=== PATIENT | male | born 1955 | race Caucasian/White ===

== ENCOUNTER 2016-03-01 19:28 | Inpatient (IN) | payer MEDICARE, MEDICAID ==
[~2016-03-01] VITALS: Ht 162.6 cm; Wt 79.0 kg
[2016-03-01] MEDS ORDERED: HALOPERIDOL 5 MG TABLET PO PRN (23:30)
[2016-03-01] MEDS ORDERED: INFLUENZA VIRUS VACCINE QVS 2016-17 (3YR+)/PF 60 MCG/0.5 ML SYRINGE IM ONE (23:45)
[2016-03-02] MEDS ORDERED: PNEUMOCOCCAL VACCINE POLYVALENT 0.5 ML VIAL [PPSV23] IM ONE (05:15)
[2016-03-02 06:19] VITALS: BP 125/92
[2016-03-02 08:10] LABS: BASOPHILS % (AUTO) 0.6 % (0.0-2.0); EOSINOPHILS % (AUTO) 2.1 % (1.0-6.0); HEMATOCRIT 41.1 % (41-53); HEMOGLOBIN 13.9 g/dL (13.5-17.5); LYMPHOCYTES # (AUTO) 2.6 K/uL (1.0-4.8); MEAN CORPUSCULAR HEMOGLOBIN 27.9 pg (26.0-34.0); MEAN CORPUSCULAR HGB CONC 33.7 G/dL (31.0-37.0); MEAN CORPUSCULAR VOLUME 83 fL (80-100); MONOCYTES # (AUTO) 1.5 K/uL (0.1-1.0); MONOCYTES % (AUTO) 11.6 % (2.0-9.0); NEUTROPHILS # (AUTO) 8.7 K/uL (1.8-7.7); NEUTROPHILS % (AUTO) 65.7 % (40.0-70.0); PLATELET COUNT (AUTO) 259 K/uL (150-450); RED BLOOD CELL COUNT(AUTO) 4.98 MIL/uL (4.50-5.90); RED CELL DISTRIBUTION WIDTH 13.9 % (11.5-14.5); WHITE BLOOD COUNT (AUTO) 13.2 K/uL (4.5-11.0)
[2016-03-02 08:36] LABS: ALANINE AMINOTRANSFERASE 27 U/L (12-78); ALBUMIN 3.5 g/dL (3.4-5.0); ANION GAP 9 mmol/L (8-16); ASPARTATE AMINOTRANSFERASE 17 U/L (15-37); BILIRUBIN,TOTAL 0.3 mg/dL (0.1-1.0); CALCIUM, TOTAL 8.4 mg/dL (8.8-10.5); CARBON DIOXIDE 26 mmol/L (22-29); CHLORIDE 97 mmol/L (98-107); CHOL/HDL RATIO 4.2 (4.2-7.3); CREATININE 0.98 mg/dL (0.60-1.30); GLOMERULAR FILTR. RATE CALC > 60 mL/min (>60); HEMOGLOBIN A1C 5.6 % (4.5-6.2); POTASSIUM 3.8 mmol/L (3.5-5.1); SODIUM SERUM 132 mmol/L (136-145); THYROID STIMULATING HORMONE 3.72 uIU/mL (0.36-3.74); TOTAL PROTEIN, SERUM 6.9 g/dL (6.4-8.2); UREA NITROGEN, BLOOD 8 mg/dL (7-18)
[2016-03-02 09:17] VITALS: BP 136/89
[2016-03-02 16:44] VITALS: BP 140/82
[2016-03-02] MEDS: BENZTROPINE MESYLATE 1 MG TABLET PO SCH (17:03)
[2016-03-02] MEDS ORDERED: INDOMETHACIN 50 MG CAPSULE PO PRN (19:30)
[2016-03-02] MEDS: DIVALPROEX SODIUM 500 MG ER TABLET PO SCH (20:44)
[2016-03-02] MEDS: RisperiDONE 1 MG TABLET PO SCH (20:44)
[2016-03-02] MEDS: CEPHALEXIN MONOHYDRATE 500 MG CAPSULE PO SCH (20:44)
[2016-03-02] MEDS: MIRTAZAPINE 15 MG TABLET PO SCH (20:44)
[2016-03-03 00:36] VITALS: BP 139/80
[2016-03-03] MEDS: RisperiDONE 1 MG TABLET PO SCH ×2 (08:16→20:15)
[2016-03-03] MEDS: CEPHALEXIN MONOHYDRATE 500 MG CAPSULE PO SCH ×4 (08:16→20:16)
[2016-03-03] MEDS: BENZTROPINE MESYLATE 1 MG TABLET PO SCH ×2 (08:16→16:29)
[2016-03-03 08:30] LABS: HEMOGLOBIN A1C 5.8 % (4.5-6.2)
[2016-03-03 08:46] VITALS: BP 126/83
[2016-03-03 09:43] LABS: CHOL/HDL RATIO 4.1 (4.2-7.3); MAGNESIUM 1.7 mg/dL (1.80-2.40); THYROID STIMULATING HORMONE 2.47 uIU/mL (0.36-3.74)
[2016-03-03 09:54] LABS: URIC ACID 4.3 mg/dL (2.6-7.2)
[2016-03-03] MEDS: LORazepam 2 MG TABLET PO PRN (16:30)
[2016-03-03 18:53] VITALS: BP 140/80
[2016-03-03] MEDS: MIRTAZAPINE 15 MG TABLET PO SCH (20:16)
[2016-03-03] MEDS: DIVALPROEX SODIUM 500 MG ER TABLET PO SCH (20:16)
[2016-03-04 00:29] VITALS: BP 138/89
[2016-03-04] MEDS: BENZTROPINE MESYLATE 1 MG TABLET PO SCH ×2 (08:30→16:11)
[2016-03-04] MEDS: CEPHALEXIN MONOHYDRATE 500 MG CAPSULE PO SCH ×4 (08:30→20:19)
[2016-03-04] MEDS: RisperiDONE 1 MG TABLET PO SCH ×2 (08:30→20:20)
[2016-03-04 09:20] VITALS: BP 132/71
[2016-03-04] MEDS ORDERED: LACTULOSE 20 GM/30 ML SOLUTION UDCUP PO ONE (10:30)
[2016-03-04 12:41] LABS: HEPATITIS Bs ANTIGEN SCREEN P Negative (Negative); HEPATITIS C AB SCREEN <0.1 s/co ratio (0.0-0.9)
[2016-03-04 17:27] VITALS: BP 136/90
[2016-03-04] MEDS: LORazepam 2 MG TABLET PO PRN (18:38)
[2016-03-04] MEDS: MIRTAZAPINE 15 MG TABLET PO SCH (20:20)
[2016-03-04] MEDS: DIVALPROEX SODIUM 500 MG ER TABLET PO SCH (20:20)
[2016-03-05 06:26] VITALS: BP 119/79
[2016-03-05 08:12] VITALS: BP 127/78
[2016-03-05] MEDS: BENZTROPINE MESYLATE 1 MG TABLET PO SCH ×2 (09:55→16:13)
[2016-03-05] MEDS: RisperiDONE 1 MG TABLET PO SCH ×2 (09:56→20:24)
[2016-03-05] MEDS: CEPHALEXIN MONOHYDRATE 500 MG CAPSULE PO SCH ×3 (09:56→16:13)
[2016-03-05] MEDS: LORazepam 2 MG TABLET PO PRN (16:13)
[2016-03-05 16:19] VITALS: BP 134/83
[2016-03-05] MEDS: DIVALPROEX SODIUM 500 MG ER TABLET PO SCH (20:23)
[2016-03-05] MEDS: MIRTAZAPINE 15 MG TABLET PO SCH (20:23)
[2016-03-06 06:36] VITALS: BP 133/98
[2016-03-06 09:41] VITALS: BP 133/72
[2016-03-06] MEDS: RisperiDONE 1 MG TABLET PO SCH ×2 (09:48→20:44)
[2016-03-06] MEDS: BENZTROPINE MESYLATE 1 MG TABLET PO SCH ×2 (09:48→16:21)
[2016-03-06 16:15] VITALS: BP 135/77
[2016-03-06] MEDS: LORazepam 2 MG TABLET PO PRN (16:21)
[2016-03-06] MEDS: DIVALPROEX SODIUM 500 MG ER TABLET PO SCH (20:43)
[2016-03-06] MEDS: MIRTAZAPINE 15 MG TABLET PO SCH (20:44)
[2016-03-07 00:48] VITALS: BP 129/90
[2016-03-07 01:59] VITALS: BP_SYST 138; BP_SYST 147; BP_DIAS 100; BP_DIAS 95
[2016-03-07] MEDS: LORazepam 2 MG TABLET PO PRN (02:07)
[2016-03-07] MEDS: BENZTROPINE MESYLATE 1 MG TABLET PO SCH ×2 (09:50→17:44)
[2016-03-07] MEDS: RisperiDONE 1 MG TABLET PO SCH ×2 (09:50→21:40)
[2016-03-07] MEDS: DIVALPROEX SODIUM 500 MG ER TABLET PO SCH (21:38)
[2016-03-07] MEDS: MIRTAZAPINE 15 MG TABLET PO SCH (21:39)
[2016-03-07] MEDS: ZOLPIDEM TARTRATE 10 MG TABLET PO PRN (21:41)
[2016-03-08 00:01] VITALS: BP 138/90
[2016-03-08] MEDS: LORazepam 2 MG TABLET PO PRN (00:02)
[2016-03-08 08:29] VITALS: BP 122/84
[2016-03-08] MEDS: RisperiDONE 1 MG TABLET PO SCH ×2 (09:50→20:32)
[2016-03-08] MEDS: BENZTROPINE MESYLATE 1 MG TABLET PO SCH ×2 (09:50→16:35)
[2016-03-08 16:11] VITALS: BP 127/83
[2016-03-08] MEDS: MIRTAZAPINE 15 MG TABLET PO SCH (20:32)
[2016-03-08] MEDS: DIVALPROEX SODIUM 500 MG ER TABLET PO SCH (20:33)
[2016-03-09 00:02] VITALS: BP 137/91
[2016-03-09] MEDS: ZOLPIDEM TARTRATE 10 MG TABLET PO PRN (00:09)
[2016-03-09 09:01] VITALS: BP 148/86
[2016-03-09] MEDS: RisperiDONE 1 MG TABLET PO SCH (09:26)
[2016-03-09] MEDS: BENZTROPINE MESYLATE 1 MG TABLET PO SCH (09:26)
[2016-03-09] MEDS ORDERED: DIVA500T52 PO (13:16)
[2016-03-09] MEDS ORDERED: BENZ2TAB10 PO (13:16)
[2016-03-09] MEDS ORDERED: RISP2 PO (13:16)
[2016-03-09] MEDS ORDERED: MIRT15 PO (13:16)
== END 2016-03-09 14:20 | disposition home or self-care (01) | DRG 885 ==
LOC: B2X 23:21 → EDSTATUS 23:34
DX: F25.1 Schizoaffective disorder, depressive type (principal); E87.1 Hypo-osmolality and hyponatremia; R45.851 Suicidal ideations; I10 Essential (primary) hypertension; E78.5 Hyperlipidemia, unspecified; F41.9 Anxiety disorder, unspecified; Z91.5 Personal history of self-harm; Z87.898 Personal history of other specified conditions; Z98.890 Other specified postprocedural states; Z87.891 Personal history of nicotine dependence; Z28.21 Immunization not carried out because of patient refusal
CPT/HCPCS: 80074; 82306; 82607; 82746; 83036; 83735; 84439; 84443; 84550; 86592

== ENCOUNTER 2016-06-16 20:22 | Inpatient (IN) | payer MEDICARE, MEDICAID ==
[~2016-06-16] VITALS: Ht 162.6 cm; Wt 88.0 kg
[~2016-06-16 20:22] MED LIST: BENZ2TAB10 PO; DIVA500T52 PO; MIRT15 PO; RISP2 PO
[2016-06-16 21:02] LABS: BASOPHILS # (AUTO) 0.06 K/uL (0.00-0.20); BASOPHILS % (AUTO) 0.5 % (0.0-2.0); EOSINOPHILS # (AUTO) 0.38 K/uL (0.00-0.70); EOSINOPHILS % (AUTO) 3.12 % (1.0-6.0); HEMATOCRIT 37.1 % (41-53); HEMOGLOBIN 12.4 g/dL (13.5-17.5); LYMPHOCYTES % (AUTO) 16.5 % (22.0-44.0); MEAN CORPUSCULAR HEMOGLOBIN 27.9 pg (26.0-34.0); MEAN CORPUSCULAR HGB CONC 33.4 G/dL (31.0-37.0); MEAN CORPUSCULAR VOLUME 83 fL (80-100); MONOCYTES % (AUTO) 8.1 % (2.0-9.0); NEUTROPHILS # (AUTO) 8.8 K/uL (1.8-7.7); NEUTROPHILS % (AUTO) 71.8 % (40.0-70.0); PLATELET COUNT (AUTO) 235 K/uL (150-450); RED BLOOD CELL COUNT(AUTO) 4.45 MIL/uL (4.50-5.90); RED CELL DISTRIBUTION WIDTH 14.1 % (11.5-14.5); WHITE BLOOD COUNT (AUTO) 12.3 K/uL (4.5-11.0)
[2016-06-16 21:15] LABS: ALANINE AMINOTRANSFERASE 21 U/L (12-78); ALBUMIN 3.4 g/dL (3.4-5.0); ANION GAP 7 mmol/L (8-16); ASPARTATE AMINOTRANSFERASE 12 U/L (15-37); BILIRUBIN,TOTAL 0.5 mg/dL (0.1-1.0); CALCIUM, TOTAL 7.9 mg/dL (8.8-10.5); CARBON DIOXIDE 27 mmol/L (22-29); CHLORIDE 91 mmol/L (98-107); CREATININE 0.69 mg/dL (0.60-1.30); GLOMERULAR FILTR. RATE CALC > 60 mL/min (>60); POTASSIUM 3.7 mmol/L (3.5-5.1); SODIUM SERUM 125 mmol/L (136-145); TOTAL PROTEIN, SERUM 6.6 g/dL (6.4-8.2); UREA NITROGEN, BLOOD 7 mg/dL (7-18); VALPROIC ACID 49 mcg/mL (50-100)
[2016-06-16] MEDS ORDERED: SODIUM CHLORIDE 1 GM TABLET PO ONE (21:45)
[2016-06-16] MEDS ORDERED: ACETAMINOPHEN 500 MG TABLET PO ONE (21:45)
[2016-06-16] MEDS ORDERED: ZOLPIDEM TARTRATE 10 MG TABLET PO PRN (22:15)
[2016-06-16] MEDS ORDERED: ACETAMINOPHEN 325 MG TABLET PO PRN (22:15)
[2016-06-16] MEDS ORDERED: MAGNESIUM HYDROXIDE SUSPENSION 30 ML UDCUP PO PRN (22:15)
[2016-06-16] MEDS ORDERED: HALOPERIDOL 5 MG TABLET PO PRN (22:15)
[2016-06-16] MEDS ORDERED: MAG HYDROX/AL HYDROX/SIMETH ES 30 ML SUSPENSION UDCUP PO PRN (22:15)
[2016-06-17] MEDS ORDERED: PNEUMOCOCCAL VACCINE POLYVALENT 0.5 ML VIAL [PPSV23] IM ONE (04:45)
[2016-06-17 06:37] LABS: GLUCOSE,POINT OF CARE 124 MG/DL (70-110)
[2016-06-17 07:03] VITALS: BP 145/99
[2016-06-17 08:17] VITALS: BP 136/89
[2016-06-17] MEDS: SODIUM CHLORIDE 1 GM TABLET PO SCH ×2 (10:09→17:01)
[2016-06-17] MEDS: BENZTROPINE MESYLATE 2 MG TABLET PO SCH (17:01)
[2016-06-17 17:05] VITALS: BP 154/109
[2016-06-17] MEDS: CloNIDine HCL 0.1 MG TABLET PO PRN (17:07)
[2016-06-17 18:05] VITALS: BP 133/88
[2016-06-17] MEDS ORDERED: HEPATITIS A VACCINE, INACTI [ADULT] 1,440 UNITS/ML VIAL IM ONE (18:15)
[2016-06-17] MEDS: MIRTAZAPINE 30 MG TABLET PO SCH (20:24)
[2016-06-17] MEDS: RisperiDONE 2 MG TABLET PO SCH (20:24)
[2016-06-18 06:35] VITALS: BP 140/89
[2016-06-18 08:11] VITALS: BP 132/97
[2016-06-18] MEDS: RisperiDONE 2 MG TABLET PO SCH ×2 (08:53→20:53)
[2016-06-18] MEDS: BENZTROPINE MESYLATE 2 MG TABLET PO SCH ×2 (08:53→16:46)
[2016-06-18] MEDS: SODIUM CHLORIDE 1 GM TABLET PO SCH ×2 (08:53→16:45)
[2016-06-18 16:00] VITALS: BP 138/99
[2016-06-18] MEDS: MIRTAZAPINE 30 MG TABLET PO SCH (20:53)
[2016-06-19 00:10] VITALS: BP 143/83
[2016-06-19 08:11] LABS: HEMOGLOBIN A1C 6.2 % (4.5-6.2)
[2016-06-19 08:27] LABS: ANION GAP 9 mmol/L (8-16); CALCIUM, TOTAL 8.4 mg/dL (8.8-10.5); CARBON DIOXIDE 25 mmol/L (22-29); CHLORIDE 97 mmol/L (98-107); CREATININE 0.81 mg/dL (0.60-1.30); GLOMERULAR FILTR. RATE CALC > 60 mL/min (>60); POTASSIUM 3.7 mmol/L (3.5-5.1); SODIUM SERUM 131 mmol/L (136-145); UREA NITROGEN, BLOOD 8 mg/dL (7-18)
[2016-06-19 08:31] VITALS: BP 124/79
[2016-06-19] MEDS: BENZTROPINE MESYLATE 2 MG TABLET PO SCH ×2 (08:53→16:36)
[2016-06-19] MEDS: RisperiDONE 2 MG TABLET PO SCH ×2 (08:53→20:25)
[2016-06-19] MEDS: SODIUM CHLORIDE 1 GM TABLET PO SCH ×2 (08:53→16:36)
[2016-06-19 09:03] LABS: CHOL/HDL RATIO 3.5 (4.2-7.3); CREATINE KINASE MB 2.4 ng/mL (0-5); CREATINE KINASE, TOTAL 156 U/L (39-308)
[2016-06-19 16:35] VITALS: BP 162/115
[2016-06-19] MEDS: CloNIDine HCL 0.1 MG TABLET PO PRN (16:36)
[2016-06-19 17:30] VITALS: BP 133/84
[2016-06-19] MEDS: MIRTAZAPINE 30 MG TABLET PO SCH (20:25)
[2016-06-19] MEDS ORDERED: DIVALPROEX SODIUM 500 MG ER TABLET PO SCH (21:00)
[2016-06-20 06:05] VITALS: BP 146/103
[2016-06-20] MEDS: CloNIDine HCL 0.1 MG TABLET PO PRN (06:05)
[2016-06-20 07:07] VITALS: BP 135/83
[2016-06-20] MEDS: SODIUM CHLORIDE 1 GM TABLET PO SCH (08:40)
[2016-06-20] MEDS: RisperiDONE 2 MG TABLET PO SCH ×2 (08:40→20:40)
[2016-06-20] MEDS: BENZTROPINE MESYLATE 2 MG TABLET PO SCH ×2 (08:40→16:48)
[2016-06-20 08:41] VITALS: BP 112/73
[2016-06-20 16:09] VITALS: BP 138/86
[2016-06-20] MEDS: MIRTAZAPINE 30 MG TABLET PO SCH (20:40)
[2016-06-20] MEDS ORDERED: DIVALPROEX SODIUM 500 MG ER TABLET PO SCH (21:00)
[2016-06-20] MEDS: LORazepam 2 MG TABLET PO PRN (21:24)
[2016-06-21 01:00] VITALS: BP 138/97
[2016-06-21 08:26] VITALS: BP 118/74
[2016-06-21 08:42] LABS: ANION GAP 11 mmol/L (8-16); CALCIUM, TOTAL 8.2 mg/dL (8.8-10.5); CARBON DIOXIDE 25 mmol/L (22-29); CHLORIDE 97 mmol/L (98-107); CREATININE 0.83 mg/dL (0.60-1.30); GLOMERULAR FILTR. RATE CALC > 60 mL/min (>60); POTASSIUM 4.1 mmol/L (3.5-5.1); SODIUM SERUM 133 mmol/L (136-145); UREA NITROGEN, BLOOD 10 mg/dL (7-18)
[2016-06-21] MEDS: LISINOPRIL 5 MG TABLET PO SCH (09:34)
[2016-06-21] MEDS: RisperiDONE 2 MG TABLET PO SCH ×2 (09:34→20:48)
[2016-06-21] MEDS: BENZTROPINE MESYLATE 2 MG TABLET PO SCH ×2 (09:35→16:42)
[2016-06-21] MEDS: CHOLECALCIFEROL (VIT D3) 2,000 UNITS TABLET PO SCH (12:34)
[2016-06-21 14:25] LABS: HEPATITIS Bs ANTIGEN SCREEN P Negative (Negative); HEPATITIS C AB SCREEN <0.1 s/co ratio (0.0-0.9)
[2016-06-21 16:07] VITALS: BP 123/82
[2016-06-21] MEDS: MIRTAZAPINE 30 MG TABLET PO SCH (20:48)
[2016-06-21] MEDS: DIVALPROEX SODIUM 500 MG ER TABLET PO SCH (20:49)
[2016-06-22 00:01] VITALS: BP 118/77
[2016-06-22] MEDS: LORazepam 2 MG TABLET PO PRN (00:02)
[2016-06-22 08:10] VITALS: BP 124/62
[2016-06-22] MEDS: BENZTROPINE MESYLATE 2 MG TABLET PO SCH ×2 (08:55→16:44)
[2016-06-22] MEDS: RisperiDONE 2 MG TABLET PO SCH ×2 (08:55→20:45)
[2016-06-22] MEDS: CHOLECALCIFEROL (VIT D3) 2,000 UNITS TABLET PO SCH (08:56)
[2016-06-22] MEDS: LISINOPRIL 5 MG TABLET PO SCH (08:56)
[2016-06-22 16:14] VITALS: BP 137/83
[2016-06-22] MEDS: MIRTAZAPINE 30 MG TABLET PO SCH (20:45)
[2016-06-22] MEDS: DIVALPROEX SODIUM 500 MG ER TABLET PO SCH (20:46)
[2016-06-23 05:02] VITALS: BP 127/78
[2016-06-23 08:17] LABS: BASOPHILS % (AUTO) 0.7 % (0.0-2.0); EOSINOPHILS % (AUTO) 4.6 % (1.0-6.0); HEMATOCRIT 39.4 % (41-53); HEMOGLOBIN 12.8 g/dL (13.5-17.5); LYMPHOCYTES # (AUTO) 2.3 K/uL (1.0-4.8); MEAN CORPUSCULAR HEMOGLOBIN 27.3 pg (26.0-34.0); MEAN CORPUSCULAR HGB CONC 32.6 G/dL (31.0-37.0); MEAN CORPUSCULAR VOLUME 84 fL (80-100); MONOCYTES % (AUTO) 9.5 % (2.0-9.0); NEUTROPHILS # (AUTO) 6.5 K/uL (1.8-7.7); NEUTROPHILS % (AUTO) 63.2 % (40.0-70.0); PLATELET COUNT (AUTO) 237 K/uL (150-450); RED CELL DISTRIBUTION WIDTH 14.2 % (11.5-14.5); WHITE BLOOD COUNT (AUTO) 10.3 K/uL (4.5-11.0)
[2016-06-23 08:23] VITALS: BP 124/74
[2016-06-23 08:54] LABS: ALANINE AMINOTRANSFERASE 26 U/L (12-78); ALBUMIN 3.3 g/dL (3.4-5.0); ANION GAP 9 mmol/L (8-16); ASPARTATE AMINOTRANSFERASE 11 U/L (15-37); BILIRUBIN,TOTAL 0.4 mg/dL (0.1-1.0); CALCIUM, TOTAL 7.9 mg/dL (8.8-10.5); CARBON DIOXIDE 26 mmol/L (22-29); CHLORIDE 97 mmol/L (98-107); CREATINE KINASE MB 0.9 ng/mL (0-5); CREATINE KINASE, TOTAL 85 U/L (39-308); CREATININE 0.78 mg/dL (0.60-1.30); GLOMERULAR FILTR. RATE CALC > 60 mL/min (>60); POTASSIUM 3.9 mmol/L (3.5-5.1); SODIUM SERUM 132 mmol/L (136-145); TOTAL PROTEIN, SERUM 6.5 g/dL (6.4-8.2); UREA NITROGEN, BLOOD 9 mg/dL (7-18)
[2016-06-23] MEDS: CHOLECALCIFEROL (VIT D3) 2,000 UNITS TABLET PO SCH (09:16)
[2016-06-23] MEDS: RisperiDONE 2 MG TABLET PO SCH ×2 (09:16→20:31)
[2016-06-23] MEDS: BENZTROPINE MESYLATE 2 MG TABLET PO SCH ×2 (09:16→16:45)
[2016-06-23] MEDS: LISINOPRIL 5 MG TABLET PO SCH (09:16)
[2016-06-23 16:07] VITALS: BP 125/81
[2016-06-23] MEDS: DIVALPROEX SODIUM 500 MG ER TABLET PO SCH (20:31)
[2016-06-23] MEDS: MIRTAZAPINE 30 MG TABLET PO SCH (20:31)
[2016-06-24 00:21] VITALS: BP 134/90
[2016-06-24 08:15] VITALS: BP 124/66
[2016-06-24 08:26] LABS: AMYLASE 32 U/L (25-115); ASPARTATE AMINOTRANSFERASE 11 U/L (15-37); VALPROIC ACID 73 mcg/mL (50-100)
[2016-06-24 08:39] LABS: BASOPHILS % (AUTO) 0.6 % (0.0-2.0); EOSINOPHILS % (AUTO) 4.3 % (1.0-6.0); HEMATOCRIT 39.3 % (41-53); LYMPHOCYTES # (AUTO) 2.3 K/uL (1.0-4.8); LYMPHOCYTES % (AUTO) 22.5 % (22.0-44.0); MEAN CORPUSCULAR HEMOGLOBIN 27.4 pg (26.0-34.0); MEAN CORPUSCULAR HGB CONC 33.1 G/dL (31.0-37.0); MEAN CORPUSCULAR VOLUME 83 fL (80-100); MONOCYTES % (AUTO) 9.7 % (2.0-9.0); NEUTROPHILS # (AUTO) 6.4 K/uL (1.8-7.7); NEUTROPHILS % (AUTO) 62.9 % (40.0-70.0); PLATELET COUNT (AUTO) 248 K/uL (150-450); RED BLOOD CELL COUNT(AUTO) 4.74 MIL/uL (4.50-5.90); RED CELL DISTRIBUTION WIDTH 14.1 % (11.5-14.5); WHITE BLOOD COUNT (AUTO) 10.1 K/uL (4.5-11.0)
[2016-06-24] MEDS: CHOLECALCIFEROL (VIT D3) 2,000 UNITS TABLET PO SCH (09:20)
[2016-06-24] MEDS: LISINOPRIL 5 MG TABLET PO SCH (09:20)
[2016-06-24] MEDS: RisperiDONE 2 MG TABLET PO SCH (09:20)
[2016-06-24] MEDS: BENZTROPINE MESYLATE 2 MG TABLET PO SCH (09:20)
[2016-06-24] MEDS ORDERED: DIVA500T52 PO (10:45)
[2016-06-24] MEDS ORDERED: LISI-660 PO (10:45)
[2016-06-24] MEDS ORDERED: MIRT30 PO (10:45)
[2016-06-24] MEDS ORDERED: CHOL200016 PO (10:45)
== END 2016-06-24 13:35 | disposition home or self-care (01) | DRG 885 ==
LOC: EMS 20:24 → B2X 22:01
PROVIDERS: ADMIT Psychiatry & Neurology Psychiatry; ATTEND Psychiatry & Neurology Psychiatry
DX: F25.0 Schizoaffective disorder, bipolar type (principal); E87.1 Hypo-osmolality and hyponatremia; F15.90 Other stimulant use, unspecified, uncomplicated; I10 Essential (primary) hypertension; E55.9 Vitamin D deficiency, unspecified; E11.9 Type 2 diabetes mellitus without complications; E03.9 Hypothyroidism, unspecified; D64.9 Anemia, unspecified; Z91.5 Personal history of self-harm; M10.9 Gout, unspecified; D72.829 Elevated white blood cell count, unspecified; E78.1 Pure hyperglyceridemia; F10.10 Alcohol abuse, uncomplicated; Z79.899 Other long term (current) drug therapy
CPT/HCPCS: 80074; 82306; 82607; 82746; 82962; 83036; 83735; 84439; 84443; 84450; 90632; 99285; G0480

== ENCOUNTER 2020-05-14 19:23 | Emergency (ER) | payer MEDICARE, MEDICAID ==
[~2020-05-14] VITALS: Ht 162.6 cm; Wt 79.5 kg
[~2020-05-14 19:23] MED LIST changes: +BENZ1TAB10 PO; -BENZ2TAB10 PO; -DIVA500T52 PO; +DULO30CA96 PO; +GABA-1181 PO; +LISI20TA24 PO; +MELA5TAB3 PO; -MIRT15 PO; +MULT-1239 PO; +OLAN10TA6 PO; +OMEG-135 PO; +QUET25TA PO; +QUET300T2 PO; -RISP2 PO
[2020-05-14 19:50] VITALS: BP 150/96
[2020-05-14] MEDS ORDERED: METF-960 PO (19:53)
[2020-05-14] MEDS ORDERED: LORazepam 1 MG TABLET PO ONE (20:00)
[2020-05-14] MEDS ORDERED: HALOPERIDOL 5 MG TABLET PO ONE (20:00)
[2020-05-14 20:29] LABS: BASOPHILS % (AUTO) 0.7 % (0.0-2.0); HEMATOCRIT 42.2 % (41-53); HEMOGLOBIN 14.1 g/dL (13.5-17.5); LYMPHOCYTES # (AUTO) 2.7 K/uL (1.0-4.8); LYMPHOCYTES % (AUTO) 22.5 % (22.0-44.0); MEAN CORPUSCULAR HEMOGLOBIN 27.3 pg (26.0-34.0); MEAN CORPUSCULAR HGB CONC 33.3 G/dL (31.0-37.0); MEAN CORPUSCULAR VOLUME 82 fL (80-100); MONOCYTES # (AUTO) 1.3 K/uL (0.1-1.0); MONOCYTES % (AUTO) 10.7 % (2.0-9.0); NEUTROPHILS # (AUTO) 7.7 K/uL (1.8-7.7); NEUTROPHILS % (AUTO) 64.1 % (40.0-70.0); PLATELET COUNT (AUTO) 282 K/uL (150-450); RED BLOOD CELL COUNT(AUTO) 5.15 MIL/uL (4.50-5.90); RED CELL DISTRIBUTION WIDTH 13.3 % (11.5-14.5)
[2020-05-14 20:33] LABS: AMPHET/METH SCREEN,URINE NEGATIVE (NEGATIVE); BARBITURATE SCREEN, URINE NEGATIVE (NEGATIVE); BENZODIAZEPINES SCREEN,URINE NEGATIVE (NEGATIVE); CANNABINOID SCREEN,URINE NEGATIVE (NEGATIVE); COCAINE SCREEN,URINE NEGATIVE (NEGATIVE); METHADONE SCREEN, URINE NEGATIVE (NEGATIVE); OPIATE SCREEN,URINE NEGATIVE (NEGATIVE)
[2020-05-14 20:37] LABS: ANION GAP 13 mmol/L (8-16); CALCIUM, TOTAL 8.8 mg/dL (8.8-10.5); CARBON DIOXIDE 21 mmol/L (22-29); CHLORIDE 98 mmol/L (98-107); CREATININE 0.97 mg/dL (0.60-1.30); GLOMERULAR FILTR. RATE CALC > 60 mL/min (>60); GLUCOSE,RANDOM 137 mg/dL (70-110); POTASSIUM 3.1 mmol/L (3.5-5.1); SODIUM SERUM 132 mmol/L (136-145); UREA NITROGEN, BLOOD 11 mg/dL (7-18)
[2020-05-14 20:39] LABS: PHENCYCLIDINE SCREEN,URINE NEGATIVE (NEGATIVE)
[2020-05-14] MEDS ORDERED: AMLO-258 PO (20:40)
[2020-05-14] MEDS ORDERED: VENL-67 PO (20:40)
[2020-05-14] MEDS ORDERED: SODI100037 PO (20:40)
[2020-05-14] MEDS ORDERED: CARV6.2534 PO (20:40)
[2020-05-14] MEDS ORDERED: DAPA5TAB PO (20:40)
[2020-05-14] MEDS ORDERED: ATOR10TA69 PO (20:41)
[2020-05-14] MEDS ORDERED: MELA5TAB21 PO (20:41)
[2020-05-14] MEDS ORDERED: BUSP15 PO (20:41)
[2020-05-14 20:44] LABS: ALANINE AMINOTRANSFERASE 24 U/L (12-78); ALBUMIN 3.8 g/dL (3.4-5.0); ALKALINE PHOSPHATASE 67 U/L (46-116); ASPARTATE AMINOTRANSFERASE 13 U/L (15-37); BILIRUBIN,TOTAL 0.2 mg/dL (0.1-1.0)
== END 2020-05-14 21:12 | disposition home or self-care (01) ==
LOC: EMS 19:23
DX: F25.9 Schizoaffective disorder, unspecified (principal); F31.9 Bipolar disorder, unspecified; E11.9 Type 2 diabetes mellitus without complications; I10 Essential (primary) hypertension; Z79.899 Other long term (current) drug therapy
CPT/HCPCS: 36415; 80053; 80307; 82962; 85025; 99284; G0480

== ENCOUNTER 2022-03-09 13:29 | Emergency (ER) | payer MEDICARE, MEDICAID ==
[~2022-03-09] VITALS: Ht 165.1 cm; Wt 81.8 kg
[~2022-03-09 13:29] MED LIST changes: -BENZ1TAB10 PO; +BUSP15 PO; +CARV6.2534 PO; +DAPA5TAB PO; +DULO20CA71 PO; -DULO30CA96 PO; -MELA5TAB3 PO; +METF-1211 PO; -MULT-1239 PO; +OLAN10TA26 PO; -OLAN10TA6 PO; -OMEG-135 PO; -QUET25TA PO; -QUET300T2 PO
[2022-03-09 15:28] LABS: HEMATOCRIT 40.6 % (41-53); HEMOGLOBIN 13.4 g/dL (13.5-17.5); LYMPHOCYTES % (AUTO) 14.8 % (22.0-44.0); MEAN CORPUSCULAR HEMOGLOBIN 27.8 pg (26.0-34.0); MEAN CORPUSCULAR HGB CONC 33.1 G/dL (31.0-37.0); MEAN CORPUSCULAR VOLUME 84 fL (80-100); MONOCYTES # (AUTO) 1.3 K/uL (0.1-1.0); MONOCYTES % (AUTO) 9.4 % (2.0-9.0); NEUTROPHILS # (AUTO) 9.3 K/uL (1.8-7.7); NEUTROPHILS % (AUTO) 69.8 % (40.0-70.0); PLATELET COUNT (AUTO) 277 K/uL (150-450); RED BLOOD CELL COUNT(AUTO) 4.84 MIL/uL (4.50-5.90); RED CELL DISTRIBUTION WIDTH 13.5 % (11.5-14.5)
[2022-03-09 15:34] LABS: ANION GAP 7 mmol/L (8-16); CALCIUM, TOTAL 8.3 mg/dL (8.8-10.5); CARBON DIOXIDE 24 mmol/L (22-29); CHLORIDE 99 mmol/L (98-107); CREATININE 0.81 mg/dL (0.60-1.30); GLUCOSE,RANDOM 116 mg/dL (70-110); POTASSIUM 3.7 mmol/L (3.5-5.1); SODIUM SERUM 130 mmol/L (136-145); UREA NITROGEN, BLOOD 14 mg/dL (7-18)
[2022-03-09 15:37] LABS: GLOMERULAR FILTR. RATE CALC > 60 mL/min (>60)
[2022-03-09 15:49] LABS: B-TYPE NATRIURETIC PEPTIDE 13 pg/mL (0-100)
[2022-03-09 15:53] VITALS: BP 134/76
[2022-03-09 15:55] LABS: COVID AG,FIA SOURCE NASOPHARYNGEAL
[2022-03-09 15:59] LABS: ALANINE AMINOTRANSFERASE 85 U/L (12-78); ALBUMIN 3.9 g/dL (3.4-5.0); ALKALINE PHOSPHATASE 76 U/L (46-116); ASPARTATE AMINOTRANSFERASE 41 U/L (15-37); BILIRUBIN,TOTAL 0.3 mg/dL (0.1-1.0); CREATINE KINASE, TOTAL ONLY 467 U/L (39-308); TOTAL PROTEIN, SERUM 7.2 g/dL (6.4-8.2)
[2022-03-09 16:17] LABS: INFLUENZA TYPE A NEGATIVE FOR TYPE A (NEGATIVE); INFLUENZA TYPE B NEGATIVE FOR TYPE B (NEGATIVE)
== END 2022-03-09 17:18 | disposition home or self-care (01) ==
LOC: EMS 13:32
DX: R09.81 Nasal congestion (principal); F31.9 Bipolar disorder, unspecified; E11.9 Type 2 diabetes mellitus without complications; I10 Essential (primary) hypertension; F20.9 Schizophrenia, unspecified; Z98.890 Other specified postprocedural states; Z20.822 Contact with and (suspected) exposure to COVID-19
CPT/HCPCS: 71045; 80053; 82550; 83880; 84484; 85025; 87804; 93005; 99285; 36415-L1; 36415-TC